=== PATIENT | female | born 1995 | race Two or more races ===

== ENCOUNTER 2016-11-17 12:08 | Emergency (ER) | payer SELFPAY ==
[~2016-11-17] VITALS: Ht 167.6 cm; Wt 59.0 kg
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
[2016-11-17 13:15] VITALS: BP 120/70
[2016-11-17] MEDS ORDERED: IBUPROFEN600 MG ORAL (13:31)
[2016-11-17 13:35] VITALS: BP 120/70
--- NOTE | 2016-11-18 11:54 | Diagnostic Imaging Report ---
Indications: PAIN Technique: Three views of the knee Comparison: None Findings: No acute fractures. No dislocations. Joint spaces are preserved. No radiopaque foreign body. Normal mineralization. Impression: No acute process
--- NOTE | 2016-11-18 11:54 | Diagnostic Imaging Report ---
Indication: PAIN Technique: 3 views left foot Comparison: none Findings: No acute fractures. No dislocations. Joint spaces are preserved. Impression: Negative
== END 2016-11-17 13:35 | disposition home or self-care (01) ==
LOC: EDBD 12:08 → EMR 12:20
DX: S80.212A Abrasion, left knee, initial encounter (principal); S80.812A Abrasion, left lower leg, initial encounter; S90.412A Abrasion, left great toe, initial encounter; V09.9XXA Pedestrian injured in unspecified transport accident, initial encounter; Y93.55 Activity, bike riding; Y92.9 Unspecified place or not applicable; Y99.9 Unspecified external cause status; M25.562 Pain in left knee; M79.675 Pain in left toe(s)
CPT/HCPCS: 99283